=== PATIENT | male | born 1960 | race Caucasian/White ===

== ENCOUNTER 2016-10-23 20:59 | Emergency (ER) | payer OTHER ==
[~2016-10-23] VITALS: Ht 185.4 cm; Wt 124.7 kg
[2016-10-23 21:12] VITALS: BP 133/70
--- NOTE | 2016-10-23 22:00 | ED UPPER/LOWER EXTREMITY COMPL ---
History of Present Illness General Chief Complaint: Lower Extremity Problems Stated Complaint: "R LEG INFECTION" PER PT Source: patient Exam Limitations: no limitations Vital Signs & Intake/Output Vital Signs & Intake/Output Vital Signs Date Time Temp Pulse Resp B/P B/P Pulse O2 O2 Flow FiO2 Mean Ox Delivery Rate 10/24 2111 98.2 60 18 133/70 96 Room Air Allergies Coded Allergies: NO KNOWN ALLERGIES (10/23/10) Reconcile Medications Amoxicillin 875 MG TABLET 1 TAB PO BID CELLULITIS Sulfamethoxazole/Trimethoprim (Bactrim Ds Tablet) 800 MG-160 MG TABLET 1 TAB PO BID CELLULITIS Triage Note: RECEIVED 56 YO MALE PRESENTS TO THE ED WITH C/O POSSIBLE RIGHT LOWER LEG INFECTION. RIGHT LOWER LEG ABOVE BARRERA AREA REDNESS WITH 3 OPEN SCABS. STARTED THURSDAY. Triage Nurses Notes Reviewed? yes Onset: Gradual Duration: day(s): (4) Timing: no prior history Severity: moderate Severity Numbers: 4 Pain/Injury Location: Right: Leg. Method of Injury: unknown Modifying Factors: Improves With: immobilization. Worsens With: movement. HPI: Patient is a 56-year-old male with history of hypertension, on medications presenting to the emergency department with chief complaint of redness to right barrera area has been going on for the past 4 days. Pain is currently mild to moderate. He noticed some abrasions to the barrera and then slowly noticed increased redness around them. Pain is worse with palpation. He has been applying Neosporin with no relief. Also noticed some associated swelling; for evaluation. No fevers or chills. Denies any nausea or vomiting. No chest pain palpitations or shortness of breath. No history of diabetes. (RONNI FAROOQ) Past History Travel History Traveled to [place] past 21 day No Medical History Any Pertinent Medical History? see below for history Neurological: NONE EENT: NONE Cardiovascular: CAD, hypertension, hyperlipidemia, M.I. 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 No (RONNI FAROOQ) Review of Systems Review of Systems Constitutional: Reports: no symptoms. Comments Review of systems: See HPI, All other systems negative. Constitutional, no chills fever or weight loss HEENT: No visual changes no sore throat no congestion Cardiovascular: No chest pain ,palpitation , orthopnea Skin, no jaundice Respiratory: No dyspnea cough sputum or hemoptysis GI: No nausea no vomiting Muscle skeletal: no back pain, no neck pain, Neurologic: No numbness Immunology: No splenectomy or history of AIDS (RONNI FAROOQ) Physical Exam Physical Exam General Appearance: well developed/nourished, no apparent distress, alert, awake , comfortable Comments: Well-developed well-nourished person in no acute distress HEENT: Nose is atraumatic. Neck: Normal inspection Cardiovascular: Regular rate and rhythms no murmurs rubs or gallops, normal JVP Respiratory: No respiratory distress.breath sounds clear to auscultation bilaterally Extremity:TENDER TO PALPATION OVER THE RIGHT TIB/FIB, 3 superficial abrasions, scabbing, minor surrounding erythema approximately 8-10 cm in diameter over the right barrera. Warm to palpation with very. Nonfluctuant. Minimal tenderness. Pedal pulses are 2+ bilaterally. Nonpitting edema noted over the right lower extremity that extends from the right ankle up to the distal barrera. Neuro: Alert oriented x3, motor sensory normal Skin: No appreciable rash on exposed skin, skin is warm and dry. Psych: Mood and affect is normal, memory and judgment is normal. (RONNI FAROOQ) Progress Differential Diagnosis: contusion, ABRASION, SKIN AVULSION, CELLULITIS, NEC FACITIS Plan of Care: Patient is well-appearing, afebrile, minimal pain to palpation over the right barrera. Likely localized cellulitis. Patient will be treated with oral antibiotics. No history of diabetes. He'll follow the primary care physician on Thursday. Educated on signs and symptoms to return including but not limited to increased redness, pain, fevers. Declined pain medication here in the emergency department. (RONNI FAROOQ) Departure Departure Time of Disposition: 2201 Disposition: HOME OR SELF CARE Condition: Stable Clinical Impression Primary Impression: Cellulitis Qualifiers: Site of cellulitis: extremity Site of cellulitis of extremity: lower extremity Laterality: right Qualified Code: L03.115 - Cellulitis of right lower limb Referrals: TOYIN CURRAN,CHEKO Coppola (PCP/Family) Additional Instructions: Follow-up with your primary care physician on Thursday call to make an appointment. Take amoxicillin and Bactrim as prescribed to help with infection. Elevate your leg as much as possible. Uric given a form for outpatient ultrasound. Make sure recall the number at the bottom tomorrow and they will tiny what time to come in. Return for worsening symptoms, increased redness, pain or concerns. Take previously prescribed anti-inflammatory to help with inflammation and pain. Departure Forms: Customer Survey General Discharge Information Prescriptions: Current Visit Scripts Sulfamethoxazole/Trimethoprim (Bactrim Ds Tablet) 1 TAB PO BID #20 TAB Amoxicillin 1 TAB PO BID #20 TAB (RONNI FAROOQ) PA/FAMILY LIVING EDUCATOR Co-Sign Statement Statement: ED Attending supervision documentation- I saw and evaluated the patient. I have also reviewed all the pertinent lab results and diagnostic results. I agree with the findings and the plan of care as documented in the PA's/FAMILY LIVING EDUCATOR's documentation. x I have reviewed the ED Record and agree with the PA's/FAMILY LIVING EDUCATOR's documentation. [] Additions or exceptions (if any) to the PAs/FAMILY LIVING EDUCATOR's note and plan are summarized below: [] (YOBANY CURRAN,TARIQ)
[2016-10-23] MEDS ORDERED: BACTRIM DS TAB1 EACH PO (22:04)
[2016-10-23] MEDS ORDERED: AMOXICILLIN875 M1 PO (22:04)
== END 2016-10-23 22:10 ==
LOC: ERH 20:59
DX: L03.115 Cellulitis of right lower limb (principal)